=== PATIENT | male | born 1975 | race Caucasian/White ===

== ENCOUNTER 2017-12-28 11:12 | Emergency (ER) | payer BC, MEDICAID ==
[2017-12-28] MEDS ORDERED: Sodium Chloride 0.9% 1,000 ML IV ONE (12:15)
[2017-12-28] MEDS ORDERED: Aspirin 81 MG Tab.Chew PO ONE (12:15)
[2017-12-28] MEDS ORDERED: Sodium Chloride 0.9% 10 ML Syringe FLUSH PRN ×2 (12:15→12:57)
[2017-12-28] MEDS ORDERED: Alum Hydrox/Mag Hydrox/Simeth 30 ML, Lidocaine 2% 15 ML PO ONE ×2 (12:15)
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
[2017-12-28] MEDS ORDERED: Iopamidol 755 MG/ML 50 ML Bottle IVPUSH ONE (12:57)
[2017-12-28] MEDS ORDERED: Iopamidol 755 Mg/ML 100 ML Bottle IVPUSH ONE (12:57)
[2017-12-28] MEDS ORDERED: Sodium Chloride 0.9% 250 ML IV SCH (13:00)
--- NOTE | 2017-12-28 13:30 | CT ---
CT chest Technique: Multiple axial sections were obtained from above the lung apices inferiorly through the lung bases. Intravenous contrast was utilized. Comparison: Adenopathy is identified within both hilar regions and within the mediastinum. Differential includes sarcoid and lymphoma. Pulmonary arteries are well-opacified and show no filling defects to indicate pulmonary embolism. Aorta shows no dissection or aneurysm. No pericardial thickening is seen. Surgical clips are seen from prior cholecystectomy. Mild degenerative change is seen within the spine. Lung window settings were reviewed which shows focal parenchymal density within the posterior left lung base and difficult to exclude an area of pneumonia. Lungs otherwise are clear. Impression: 1. Hilar and mediastinal adenopathy with differential including lymphoma and sarcoid. 2. No findings of pulmonary embolism. 3. Small focal parenchymal density within left base and difficult to exclude an area of pneumonia if patient has infectious symptoms. Diagnostic code #9
--- NOTE | 2017-12-28 13:47 | CR ---
Chest: Two views of the chest were obtained. Comparison: No prior chest x-ray. Hilar abnormalities are seen correlating to adenopathy on subsequent chest CT. Lungs show no acute parenchymal change. Heart size is normal. Impression: 1. Hilar abnormalities correlating to adenopathy on subsequent chest x-ray. Diagnostic code #9
[2017-12-28] MEDS ORDERED: Bupivacaine 0.5% 10 ML SDV INJECT ONE (14:47)
== END 2017-12-28 15:20 | disposition home or self-care (01) ==
LOC: JD.ED 11:12
DX: R59.0 Localized enlarged lymph nodes (principal); R07.89 Other chest pain
CPT/HCPCS: 36415; 71046; 71275; 80053; 84484; 84550; 85025; 85379; 85652; 86140; 93005; 96360; 96361; 99285; A9270; J7040; J7050; Q9967; 93010; 99284-25